=== PATIENT | male | born 1990 | race Caucasian/White ===

== ENCOUNTER 2017-07-18 20:14 | Emergency (ER) | payer BC, MEDICAID ==
--- NOTE | 2017-07-18 22:11 | EDPHY ---
H & P Time Seen by Provider: 07/18/17 22:02 HPI/ROS: CHIEF COMPLAINT: Medical Clearance. HISTORY OF PRESENT ILLNESS: The patient is a 26-year-old male here for medical clearance before he can be accepted at [facility]. The patient is currently in an outpatient rehab program for heroin and Benzos abuse. He has continued using throughout his outpatient rehab and would like to get clean. Patient is planning on going to [facility] for detox and says he has a bed there, but has to be medically cleared and seen by a psychiatrist first. Patient complains of being very cold and uncomfortable. He last used heroin at 2am. He believes he is about to go into withdrawals. REVIEW OF SYSTEMS: A comprehensive 10 point review of systems is otherwise negative aside from elements mentioned in the history of present illness. Past Medical/Surgical History: Hepatitis C. Social History: Heroin abuse. Psychiatrist: Dr. Chung. Here with outpatient rehab counselor. Smoking Status: Current every day smoker Physical Exam: General Appearance: Alert, pleasant, cooperative Eyes: Pupils equal and round, no conjunctival pallor or injection ENT, Mouth: Mucous membranes moist Neck: Normal inspection Respiratory: Lungs are clear to auscultation Cardiovascular: Regular rate and rhythm Gastrointestinal: Abdomen is soft and non-tender Neurological: A&O, nonfocal, normal gait Skin: Warm and dry, no rash. No piloerection. Extremities: Nontender, no pedal edema Psychiatric: Mood and affect normal Constitutional: Initial Vital Signs Temperature (C) 37 C 07/18/17 20:19 Heart Rate 67 07/18/17 20:19 Respiratory Rate 16 07/18/17 20:19 Blood Pressure 114/70 07/18/17 20:19 O2 Sat (%) 96 07/18/17 20:19 O2 Delivery Mode Room Air Allergies/Adverse Reactions: No Known Allergies Allergy (Verified 07/19/17 12:54) Home Medications: Medication Instructions Recorded Depakote 07/18/17 KLONOPIN 07/18/17 Unk Hep C Med 07/18/17 clonIDINE [Catapres (*)] 0.1 mg PO BID #10 tab 07/18/17 Medical Decision Making ED Course/Re-evaluation: Patient is here for medical clearance before admission to [facility] for heroin detox. Plan to check lab work. I will have our shoe parts caser speak with the patient and [facility]. This patient was seen by mental health and by the manager financial reporting. [facility] will not accept him tonight for heroin detox. He will leave the emergency department with his counselor and arrange for inpatient rehab tomorrow. - Data Points Laboratory Results: Laboratory Results 07/18/17 21:33 07/18/17 21:33 Departure - Departure Disposition: Home, Routine, Self-Care Clinical Impression: Heroin withdrawal Condition: Good Instructions: Narcotic Abuse (ED) Referrals: Jenn Gandhi DO [Doctor of Osteopathy] - As per Instructions Prescriptions: clonIDINE [Catapres (*)] 0.1 mg PO BID #10 tab Report Scribed for: Lea Jamison Report Scribed by: Valerie Mayes Date of Report: 07/18/17 Time of Report: 22:12 Physician Review and Approval Statement: 07/18/17 22:12 Portions of this note were transcribed by a medical educator. I personally performed the history, physical exam, and medical decision-making; and confirmed the accuracy of the information in the transcribed note.
[2017-07-18 22:17] LABS: % IMMATURE GRANULYOCYTES 0.3 % (0.0-1.1); ABSOLUTE IMMATURE GRANULOCYTES 0.02 10^3/uL (0.00-0.10); ADD DIFF? NO; ADD MORPH? NO; ADD SCAN? NO; ATYPICAL LYMPHOCYTE FLAG 10 (0-99); FRAGMENT RBC FLAG 0 (0-99); HEMATOCRIT 43.4 % (40.0-51.0); LEFT SHIFT FLG 0 (0-99); LIPEMIA HEMOLYSIS FLAG 90 (0-99); MEAN CELL HEMOGLOBIN 30.1 pg (27.9-34.1); MEAN CELL HEMOGLOBIN CONCENTR. 34.6 g/dL (32.4-36.7); MEAN PLATELET VOLUME 10.2 fL (8.7-11.7); PLATELET CLUMPS FLAG 10 (0-99); PLATELET COUNT 206 10^3/uL (150-400); RED BLOOD CELL COUNT 4.99 10^6/uL (4.40-6.38); RED CELL DISTRIBUTION WIDTH 12.2 % (11.5-15.2)
[2017-07-18 22:34] LABS: ANION GAP 11 mEq/L (8-16); CALCIUM 9.1 mg/dL (8.5-10.4); CARBON DIOXIDE 25 mEq/l (22-31); CHLORIDE 98 mEq/L (97-110); CREATININE 0.7 mg/dL (0.7-1.3); ETHANOL SERUM < 10 mg/dL (0-10); GLOMERULAR FILTRATION RATE > 60; GLUCOSE 115 mg/dL (70-100); POTASSIUM 4.1 mEq/L (3.5-5.2); SODIUM 134 mEq/L (134-144)
[2017-07-18 23:55] VITALS: BP 115/73; PULSE 94; RESP 18; TEMP 98.4; O2SAT 92
== END 2017-07-18 23:55 | disposition home or self-care (01) ==
DX: F11.23 Opioid dependence with withdrawal (principal); F17.200 Nicotine dependence, unspecified, uncomplicated
CPT/HCPCS: G0480

== ENCOUNTER 2017-07-19 12:46 | Emergency (ER) | payer MEDICAID ==
[2017-07-19] MEDS ORDERED: IBUPROFEN 600 MG TAB PO ONE ×2 (14:04→14:11)
[2017-07-19] MEDS ORDERED: ONDANSETRON DISINTEGRATING 4 MG TAB PO ONE (14:04)
--- NOTE | 2017-07-19 14:06 | EDPHY ---
H & P Time Seen by Provider: 07/19/17 13:54 HPI/ROS: CHIEF COMPLAINT: Medical clearance, substance abuse HISTORY OF PRESENT ILLNESS: 26-year-old male presents to the emergency department by private vehicle requesting medical clearance for substance abuse, inpatient detox center. The patient is planning on going to [facility]. He has been accepted there once he has been medically cleared. He was seen in the emergency department last evening and had blood drawn. He has a history of abusing IV heroin. Last use of heroin was last night. He has also been using Klonopin and has been trying to taper himself off of this. His last use of Klonopin was 3 or 4 days ago. He feels nauseous. No vomiting. No headache. No chest pain or difficulty breathing. Diffuse abdominal cramping. No diarrhea. REVIEW OF SYSTEMS: Constitutional: No fever, no chills. Eyes: No double or blurry vision. ENT: No sore throat. Respiratory: No cough, no shortness of breath. Cardiac: No chest pain. Gastrointestinal: No abdominal pain, vomiting or diarrhea. Genitourinary: No dysuria. Musculoskeletal: No neck or back pain. Skin: No rashes. Neurological: No headache. Past Medical/Surgical History: Substance abuse, hepatitis-C, bipolar Social History: Single Smoking Status: Current every day smoker Physical Exam: General Appearance: Alert, no distress. Vital signs are stable. Eyes: Pupils equal and round. Extraocular motions are all intact. ENT: Mouth: Mucous membranes moist. Respiratory: No wheezing, rhonchi, or rales, lungs are clear to auscultation. Cardiovascular: Regular rate and rhythm. Gastrointestinal: Abdomen is soft and nontender, no masses, no rebound or guarding, bowel sounds normal. Neurological: Alert and oriented x 3, cranial nerves II through XII grossly intact Skin: Numerous track brasher in upper extremities and lower extremities especially medial ankles. No signs of cellulitis or infection. Warm and dry, no rashes. Musculoskeletal: Nontender to palpate along the cervical, thoracic or lumbar spine. Neck is supple. Extremities: Full range of motion and no peripheral edema. Psychiatric: Patient is oriented X 3, there is no agitation. Constitutional: Initial Vital Signs Temperature (C) 36.8 C 07/19/17 12:54 Heart Rate 85 07/19/17 12:54 Respiratory Rate 18 07/19/17 12:54 Blood Pressure 114/75 07/19/17 12:54 O2 Sat (%) 94 07/19/17 12:54 O2 Delivery Mode Room Air Allergies/Adverse Reactions: No Known Allergies Allergy (Verified 07/19/17 12:54) Home Medications: Medication Instructions Recorded Depakote 07/18/17 KLONOPIN 07/18/17 Unk Hep C Med 07/18/17 clonIDINE [Catapres (*)] 0.1 mg PO BID #10 tab 07/18/17 Medical Decision Making ED Course/Re-evaluation: 26-year-old male presents to the emergency department requesting medical clearance. The patient feels that he needs inpatient detox. He has been through outpatient therapy however has been continuing to abuse drugs. He feels nauseous. Patient was given 4 mg Zofran ODT, 600 mg of ibuprofen p.o., and 1 mg of Ativan p.o.. The patient was originally accepted as an outpatient to [facility] however they did not feel that he met inpatient criteria since he has been taking Suboxone and he told the case coordinator that his last use of heroin was 2 days ago. The patient has been accepted at the addiction recovery Center. He has been discharged with a prepack of Ativan that he will take with him. Differential Diagnosis: Including but not limited to substance abuse, benzodiazepine withdrawal, electrolyte abnormality - Data Points Medications Given: Discontinued Medications Ibuprofen (Motrin) 600 mg PO EDNOW ONE Stop: 07/19/17 14:05 Last Admin: 07/19/17 14:12 Dose: 600 mg Lorazepam (Ativan) 1 mg PO EDNOW ONE Stop: 07/19/17 14:10 Last Admin: 07/19/17 14:12 Dose: 1 mg Lorazepam (Ativan 1 Mg Prepack#4) 1 btl TAKEHOME EDNOW ONE Stop: 07/19/17 17:09 Last Admin: 07/19/17 18:50 Dose: 1 btl Nicotine (Nicoderm Cq) 14 mg TD EDNOW ONE Stop: 07/19/17 19:13 Last Admin: 07/19/17 19:28 Dose: 14 mg Nicotine (Nicoderm Cq) 14 mg TD EDNOW ONE Stop: 07/19/17 19:13 Last Admin: 08/29/17 19:28 Dose: 14 mg Ondansetron HCl (Zofran Odt) 4 mg PO EDNOW ONE Stop: 07/19/17 14:05 Last Admin: 07/19/17 14:12 Dose: 4 mg Departure - Departure Disposition: Home, Routine, Self-Care Clinical Impression: Polysubstance abuse Condition: Good Instructions: Lorazepam (By mouth), Nicotine (Absorbed through the skin), Polysubstance Abuse (ED) Additional Instructions: You have been medically cleared to go directly to [facility] at [address] [place] [address]. [phone]. Referrals: [facility] Detox 24 Hours [Outside] - As per Instructions
[2017-07-19] MEDS ORDERED: LORazepam 1 MG TAB PO ONE (14:09)
--- NOTE | 2017-07-19 14:48 | ASMTCMCOM ---
CM Note CM Note Notes: Patient presents to our ED for medical detox placement and needs medical clearance for possible adm ission to [facility]. Patient states he relapsed about 6 days ago. Pt states his last use of heroin was two days ago and he normally used 0.5grams p er day by injection. Patient states his last use of speed was also two days ago and normally uses 0.2grams per day. Patient states his last use of b enzodiazepines was three days ago and normally used 1.5 mg Klonopin per day. Patients states he had been clean from heroin, speed and benzos for about two years (but was still taking Methadone and Suboxone during this period) before moving to [place] about 4 months ago. His last treatment stay was about 2 years ago in [facility]. Since 4 months ago he has relapsed about 3 times with his using periods lasting about 3-4days. Pt also has a Suboxone provide r, Dr. Marcos Mcclelland in [place] ([phone]); his last use of Suboxone (Zubsolv)was this morning, before that it had been about a week. Patient is accompanied by his flotation tank operator Pasha Latham ([phone]) through [facility] and has been with patient since last night's ED visit and is able to transport patient to the treatment faciliy. Date Signed: 07/19/2017 02:47 PM Electronically Signed By:Myra Ramírez
--- NOTE | 2017-07-19 15:36 | ASMTCMCOM ---
CM Note CM Note Notes: Patient referral faxed to [facility] (P: [phone], option 9), called to confirm receival and staff requested that the referral be traditionally faxed and not through [facility]. Staff said they are able to retrieve the referral through [facility] but that it takes a significantally longer amount of time so they prefer traditional fax. Referral printed and traditio monica faxed to [facility] (fax: [phone]). Patient updated on status of referral review. Date Signed: 07/19/2017 03:35 PM Electronically Signed By:Myra Ramírez
[2017-07-19] MEDS ORDERED: LORAZEPAM 1 MG PREPACK#4 BTL TAKEHOME ONE (17:08)
[2017-07-19 18:50] VITALS: BP 113/78; PULSE 67; RESP 16; TEMP 97.9; O2SAT 95
[2017-07-19] MEDS ORDERED: NICOTINE 14 MG/24 HR PATCH TD ONE ×2 (19:12)
== END 2017-07-19 19:29 | disposition home or self-care (01) ==
DX: F19.10 Other psychoactive substance abuse, uncomplicated (principal); F17.200 Nicotine dependence, unspecified, uncomplicated
CPT/HCPCS: 80305

== ENCOUNTER 2017-07-25 10:04 | Emergency (ER) | payer MEDICAID ==
[2017-07-25 11:04] LABS: ANION GAP 10 mEq/L (8-16); CALCIUM 9.4 mg/dL (8.5-10.4); CARBON DIOXIDE 25 mEq/l (22-31); CHLORIDE 102 mEq/L (97-110); CREATININE 0.6 mg/dL (0.7-1.3); ETHANOL SERUM < 10 mg/dL (0-10); GLOMERULAR FILTRATION RATE > 60; GLUCOSE 126 mg/dL (70-100); POTASSIUM 4.7 mEq/L (3.5-5.2); SODIUM 137 mEq/L (134-144); SPECIMEN HEMOLYSIS 125
[2017-07-25 11:25] LABS: % IMMATURE GRANULYOCYTES 0.1 % (0.0-1.1); ABSOLUTE IMMATURE GRANULOCYTES 0.01 10^3/uL (0.00-0.10); ADD DIFF? NO; ADD MORPH? NO; ADD SCAN? NO; ATYPICAL LYMPHOCYTE FLAG 30 (0-99); FRAGMENT RBC FLAG 0 (0-99); HEMATOCRIT 37.4 % (40.0-51.0); HEMOGLOBIN 12.8 g/dL (13.7-17.5); LEFT SHIFT FLG 0 (0-99); LIPEMIA HEMOLYSIS FLAG 90 (0-99); MEAN CELL HEMOGLOBIN 30.2 pg (27.9-34.1); MEAN CELL HEMOGLOBIN CONCENTR. 34.2 g/dL (32.4-36.7); MEAN CELL VOLUME 88.2 fL (81.5-99.8); PLATELET CLUMPS FLAG 10 (0-99); PLATELET COUNT 276 10^3/uL (150-400); RED BLOOD CELL COUNT 4.24 10^6/uL (4.40-6.38); RED CELL DISTRIBUTION WIDTH 12.3 % (11.5-15.2)
[2017-07-25 11:44] LABS: ALANINE AMINOTRANSFERASE 24 IU/L (21-72); ALBUMIN 3.7 g/dL (3.5-5.0); ALKALINE PHOSPHATASE 62 IU/L (38-126); ANION GAP 12 mEq/L (8-16); ASPARTATE AMINOTRANSFERASE 29 IU/L (17-59); BILIRUBIN,TOTAL 0.6 mg/dL (0.1-1.4); CALCIUM 9.2 mg/dL (8.5-10.4); CARBON DIOXIDE 25 mEq/l (22-31); CHLORIDE 102 mEq/L (97-110); CREATININE 0.6 mg/dL (0.7-1.3); ETHANOL SERUM < 10 mg/dL (0-10); GLOMERULAR FILTRATION RATE > 60; GLUCOSE 146 mg/dL (70-100); POTASSIUM 3.9 mEq/L (3.5-5.2); SODIUM 139 mEq/L (134-144); TOTAL PROTEIN 6.4 g/dL (6.3-8.2)
[2017-07-25] MEDS: IBUPROFEN 600 MG TAB PO ONE (14:33)
[2017-07-25] MEDS ORDERED: LORazepam 1 MG TAB PO ONE ×2 (14:37→23:46)
--- NOTE | 2017-07-25 16:03 | EDPHY ---
H & P Stated Complaint: DRUG WITHDRAWAL, PARANOID, SUICIDAL IDEATION - Personal History Current Tetanus Diphtheria and Acellular Pertussis (TDAP): Unsure - Medical/Surgical History Hx Asthma: No Hx Chronic Respiratory Disease: No Hx Diabetes: No Hx Cardiac Disease: No Hx Renal Disease: No Hx Cirrhosis: No Hx Alcoholism: No Hx HIV/AIDS: No Hx Splenectomy or Spleen Trauma: No Other PMH: heroin/meth amph abuse, bipolar, hep c - Social History Smoking Status: Current every day smoker Time Seen by Provider: 07/25/17 10:21 HPI/ROS: Chief complaint: Suicidal ideation History of present illness: This is a 26-year-old male who presents to the emergency department for suicidal ideation. Patient apparently brought in by his "mentors." Patient does have a history of drug abuse, specifically heroin. He has relapsed and is currently using. He has attempted to go to detox but does not feel it was a good fit for him. He would like inpatient treatment. He was seen a few days ago in this in emergency room and detox was arranged. Apparently did not feel it was a good fit. He is having thoughts of killing himself now. He has no specific plan. Denies homicidal ideation. He is concerned about a small bump on his left arm is getting infected. Denies other associated signs or symptoms. Review of systems: A 10 point review of systems was obtained and other than described above was negative. Review of systems: A 10 point review of systems was obtained and other than described above was negative (Shreyas Turcios) - Physical Exam Exam: General Appearance: Alert, nontoxic. Eyes: Pupils equal and round no pallor or injection. ENT, Mouth: Mucous membranes moist. Respiratory: There are no retractions, lungs are clear to auscultation. Cardiovascular: Regular rate and rhythm. Gastrointestinal: Abdomen is soft and non tender, no masses, bowel sounds normal. Neurological: Alert. Strength and sensation intact and symmetrical. Skin: Warm and dry, no rashes. Small area of erythema to the left proximal forearm. No induration or fluctuance. No red streaking. Musculoskeletal: Neck is supple non tender. Extremities are symmetrical, full range of motion. Psychiatric: Patient is oriented X 3, there is no agitation. (Shreyas Turcios) Constitutional: Initial Vital Signs Temperature (C) 37 C 07/25/17 10:05 Heart Rate 82 07/25/17 10:05 Respiratory Rate 16 07/25/17 10:05 Blood Pressure 147/63 H 07/25/17 10:05 O2 Sat (%) 93 07/25/17 10:05 O2 Delivery Mode Room Air Allergies/Adverse Reactions: No Known Allergies Allergy (Verified 07/25/17 10:10) Home Medications: Medication Instructions Recorded Buprenorphine HCl/Naloxone HCl 1 each SL DAILY 07/26/17 [Zubsolv 11.4-2.9 mg Tablet Sl] Divalproex [Depakote 500 MG (RX)] 500 mg PO BID 07/26/17 Escitalopram Oxalate [Lexapro] 10 mg PO DAILY 07/26/17 Gabapentin [Gralise] 1,200 mg PO TID 07/26/17 Sofosbuvir/Velpatasvir [Epclusa 1 tab PO DAILY 07/26/17 400 mg-100 mg Tablet] Medical Decision Making ED Course/Re-evaluation: Patient seen under the supervision of my secondary supervising physician Dr. Leo Vieira. Patient presents to the emergency department reporting suicidal ideation. He has concurrent polysubstance abuse problems. He is currently using heroin. On my evaluation he is nontoxic. He does appear to have a developing cellulitis to his left arm where he injected. He will be started on Bactrim. He is otherwise cleared for psychiatric evaluation. Initial evaluation the psychiatric team is concerned this is a mixed picture given his recent drug abuse and is not sure if he has a clear acute underlying psychiatric issue. They are concerned for him potentially being gravely disabled. They have placed him on a mental health hold. They would like to re- evaluate the patient this evening, 12 hours after admission to the emergency department. Care of patient will be turned over to my attending physician Dr. Mark Frias at end of shift to follow-up on the evaluation. (Shreyas Turcios) 10:40 p.m. the patient is becoming slightly agitated. I will treat him with Ativan. Mental Health will not evaluate him until 7:00 a.m. because they are concerned about his recent drug use. 4:20 p.m. July 26. The patient has been re-evaluated by mental health. He now contracts for safety. They would like to lift his hold and sent to the Addiction recovery Center by the patient agrees with this. (Mark Frias) Differential Diagnosis: Included but not limited to substance abuse, depression, bipolar, schizophrenic (Shreyas Turcios) - Data Points Laboratory Results: Laboratory Results 07/25/17 11:11 07/25/17 11:11 Medications Given: Nicotine (Nicoderm Cq) 21 mg TD DAILY PETER Stop: 01/21/18 17:44 Last Admin: 07/26/17 09:22 Dose: 21 mg Discontinued Medications Cephalexin HCl (Keflex) 500 mg PO EDNOW ONE PRN Reason: Protocol Stop: 07/26/17 09:35 Last Admin: 07/26/17 09:39 Dose: 500 mg Ibuprofen (Motrin) 600 mg PO EDNOW ONE Stop: 07/25/17 14:29 Last Admin: 07/26/17 09:40 Dose: 600 mg Ibuprofen (Motrin) 800 mg PO EDNOW ONE Stop: 07/26/17 09:35 Last Admin: 07/26/17 09:43 Dose: Not Given Ibuprofen (Motrin) 200 mg PO EDNOW ONE Stop: 07/26/17 09:45 Last Admin: 07/26/17 09:47 Dose: 200 mg Lorazepam (Ativan) 1 mg PO EDNOW ONE Stop: 07/25/17 14:38 Last Admin: 07/25/17 14:41 Dose: 1 mg Lorazepam (Ativan) 1 mg PO ONCE ONE Stop: 07/25/17 23:47 Last Admin: 07/25/17 23:53 Dose: 1 mg Lorazepam (Ativan) 1 mg PO EDNOW ONE Stop: 07/26/17 15:50 Last Admin: 07/26/17 15:57 Dose: 1 mg Olanzapine (Olanzapine) 10 mg PO EDNOW ONE Stop: 07/25/17 17:40 Last Admin: 07/25/17 17:51 Dose: 10 mg Trimethoprim/Sulfamethoxazole (Bactrim Ds) 1 ea PO EDNOW ONE PRN Reason: Protocol Stop: 07/25/17 16:07 Last Admin: 07/25/17 17:25 Dose: 1 ea Trimethoprim/Sulfamethoxazole (Bactrim Ds) 1 ea PO EDNOW ONE PRN Reason: Protocol Stop: 07/26/17 09:36 Last Admin: 07/26/17 09:40 Dose: 1 ea Departure - Departure Disposition: Home, Routine, Self-Care Clinical Impression: Suicidal ideation, Polysubstance abuse, Left arm cellulitis Condition: Fair Instructions: Suicide Prevention for Adults (ED), Polysubstance Abuse (ED) Referrals: NONE *PRIMARY CARE P,. [Primary Care Provider] - As per Instructions [facility],. [Clinic] - As per Instructions
[2017-07-25] MEDS ORDERED: SULFAMETHOX/TMP 800/160 MG 1 TAB PO ONE (16:06)
[2017-07-25] MEDS ORDERED: NICOTINE 21 MG/24 HR PATCH TD ONE (17:37)
[2017-07-25] MEDS ORDERED: OLANZapine 10 MG TAB PO ONE (17:39)
[2017-07-25] MEDS ORDERED: OLANZapine 5 MG TAB ONE (17:44)
[2017-07-25] MEDS: NICOTINE 21 MG/24 HR PATCH TD SCH (17:46)
[2017-07-25] MEDS ORDERED: LORazepam 1 MG TAB ONE (22:42)
[2017-07-26] MEDS ORDERED: SULFAMETHOX/TMP 800/160 MG 1 TAB PO SCH
[2017-07-26] MEDS: NICOTINE 21 MG/24 HR PATCH TD SCH (09:22)
[2017-07-26] MEDS ORDERED: IBUPROFEN 800 MG TAB PO ONE (09:34)
[2017-07-26] MEDS ORDERED: CEPHALEXIN 500 MG CAP PO ONE (09:34)
[2017-07-26] MEDS ORDERED: SULFAMETHOX/TMP 800/160 MG 1 TAB PO ONE (09:35)
[2017-07-26] MEDS ORDERED: IBUPROFEN 600 MG TAB PO ONE (09:37)
[2017-07-26] MEDS ORDERED: IBUPROFEN 200 MG TAB PO ONE ×2 (09:37→09:44)
[2017-07-26] MEDS: IBUPROFEN 600 MG TAB PO ONE (09:40)
[2017-07-26] MEDS ORDERED: LORazepam 1 MG TAB PO ONE (15:49)
[2017-07-26] MEDS ORDERED: ONDANSETRON DISINTEGRATING 4 MG TAB PO ONE (16:34)
[2017-07-26 17:54] VITALS: BP 137/87; PULSE 90; RESP 18; TEMP 97.9; O2SAT 97
== END 2017-07-26 17:43 | disposition home or self-care (01) ==
DX: R45.851 Suicidal ideations (principal); L03.114 Cellulitis of left upper limb; F11.10 Opioid abuse, uncomplicated; F17.200 Nicotine dependence, unspecified, uncomplicated
CPT/HCPCS: 80305; G0480

== ENCOUNTER 2018-08-31 21:23 | Emergency (ER) | payer MEDICAID, OTHER ==
--- NOTE | 2018-08-31 21:27 | EDPHY ---
H & P Source: Patient, Police, RN/MD, EMS, Old records Exam Limitations: Intoxication - Medical/Surgical History Hx Asthma: No Hx Chronic Respiratory Disease: No Hx Diabetes: No Hx Cardiac Disease: No Hx Renal Disease: No Hx Cirrhosis: No Hx Alcoholism: No Hx HIV/AIDS: No Hx Splenectomy or Spleen Trauma: No Other PMH: heroin/meth amph abuse, bipolar, hep c - Social History Smoking Status: Current every day smoker Time Seen by Provider: 08/31/18 21:26 HPI/ROS: HPI: This is a 27-year-old male who presents with Chief Complaint: Narcan wake up Location: body Quality: Heroin overdose Duration: Unknown Signs and Symptoms:+ lethargy Timing: Acute on chronic Severity: Moderate Context: Patient has a history heroin and methamphetamine abuse presents via EMS with heroin overdose. Reports intravenous heroin use this evening around approximately 830 pm and injected .25 grams heroin. Site was left forearm. Reports drug overdose in the past. Someone at patient's apartment called 911. EMS gave patient 0.4 mg of Narcan intranasally en route. Patient is very lethargic and a poor historian. Denies suicidal ideation, homicidal ideation. Modifying Factors: See above Comment: ROS: A comprehensive 10 system review of systems is otherwise negative aside from elements mentioned in the history of present illness. MEDICAL/SURGICAL/SOCIAL HISTORY: Medical history: heroin/meth amph abuse, bipolar, hep c Surgical history: Denies Social history: + smoker. Family history noncontributory. CONSTITUTIONAL: Lethargic, adult white male, awake and alert, no obvious distress HEENT: Atraumatic and normocephalic, PERRL, EOMI. Nares patent; no rhinorrhea; no nasal mucosal edema. Tympanic membranes clear. Oropharynx clear, no exudate and moist pink mucosa. Airway patent. No lymphadenopathy. No meningismus. Cardiovascular: Normal S1/S2, regular rate, regular rhythm, without murmur rub or gallop. PULMONARY/CHEST: Symmetrical and nontender. Clear to auscultation bilaterally. Good air movement. No accessory muscle usage. ABDOMEN: Soft, nondistended, nontender, no rebound, no guarding, no peritoneal signs, no masses or organomegaly. No CVAT. EXTREMITIES: 2/2 pulses, strength 5/5, no deformities, no clubbing, no cyanosis or edema. NEUROLOGICAL: no focal neuro deficits. GCS 15. SKIN: Warm and dry, no erythema. no rash. Good capillary refill. (Leilani Rader) Constitutional: Initial Vital Signs Temperature (C) 36.6 C 08/31/18 21:26 Heart Rate 94 08/31/18 21:26 Respiratory Rate 14 08/31/18 21:26 Blood Pressure 133/89 H 08/31/18 21:26 O2 Sat (%) 85 L 08/31/18 21:26 O2 Delivery Mode Room Air O2 (L/minute) 2 Allergies/Adverse Reactions: No Known Allergies Allergy (Verified 07/25/17 10:10) Home Medications: Medication Instructions Recorded Buprenorphine HCl/Naloxone HCl 1 each SL DAILY 07/26/17 [Zubsolv 11.4-2.9 mg Tablet Sl] Divalproex [Depakote 500 MG (RX)] 500 mg PO BID 07/26/17 Escitalopram Oxalate [Lexapro] 10 mg PO DAILY 07/26/17 Gabapentin [Gralise] 1,200 mg PO TID 07/26/17 Sofosbuvir/Velpatasvir [Epclusa 1 tab PO DAILY 07/26/17 400 mg-100 mg Tablet] Medical Decision Making ED Course/Re-evaluation: Vital signs reviewed and show O2 sats 85% on room air upon arrival. Placed on non-rebreather. IV access obtained and given IV 0.4 mg of Narcan. Laboratory studies, IV fluids, urine drug screen ordered 5: Reassessed patient. O2 sats now 100% on 4 L nasal cannula. Sleeping soundly but easily aroused. 0: Labs reviewed. Elevated LFTs noted with known hepatitis C. No signs of acute kidney injury, anemia, electrolyte imbalance, pancreatitis. Tylenol and salicylate levels negligible. Ethanol negative. 2305: Notified by nurse that patient is asking for water to drink. He is now 100% on room air. Tachycardia is resolved. Patient does not meet M1 hold or detainer criteria. Will offer discharge to the Addiction [facility]. 2230: Patient asking to be discharged home. Reports that he has no other drugs at his house. He refuses to go to the [facility]. 2245: Patient walking around the emergency without ataxia. He is alert and oriented x4. He will be discharged home. This patient was seen under the supervision of my secondary supervising physician. I evaluated care for this patient independently. Discussed this patient with Dr. Hammonds. (Leilani Rader) I did not see this patient while he was in the emergency department. However his care was discussed with the PA while the patient was in the department. I agree with treatment plan and management (Saad Hammonds) Differential Diagnosis: Altered mental status including but not limited to hypoglycemia, infectious process, electrolyte abnormality, head injury and intoxicants. (Leilani Rader) - Data Points Laboratory Results: Laboratory Results 08/31/18 21:40 08/31/18 21:40 Medications Given: Discontinued Medications Sodium Chloride (Ns) 1,000 mls @ 0 mls/hr IV EDNOW ONE; Wide Open PRN Reason: Protocol Stop: 08/31/18 21:31 Last Admin: 08/31/18 21:35 Dose: 1,000 mls Naloxone HCl (Narcan) 0.4 mg IVP EDNOW ONE Stop: 08/31/18 21:31 Last Admin: 08/31/18 21:31 Dose: 0.4 mg Departure - Departure Disposition: Home, Routine, Self-Care Clinical Impression: Accidental heroin overdose Qualifiers: Encounter type: initial encounter Qualified Code(s): T40.1X1A - Poisoning by heroin, accidental (unintentional), initial encounter Condition: Good Instructions: Safe Use of Opioids (ED), Opioid Overdose (ED) Additional Instructions: Please refrain from using drugs and alcohol. Follow up with [facility]. Referrals: [facility],. [Clinic] - As per Instructions [facility] Detox 24 Hours [Outside] - As per Instructions
[2018-08-31] MEDS ORDERED: NALOXONE HCL 0.4 MG/ML INJ IVP PRN (21:30)
[2018-08-31] MEDS ORDERED: NALOXONE HCL 0.4 MG/ML INJ ONE (21:30)
[2018-08-31] MEDS: NALOXONE HCL 0.4 MG/ML INJ IVP ONE (21:31)
[2018-08-31] MEDS: NS 1,000 ML IV ONE (21:35)
[2018-08-31 21:47] LABS: PLATELET COUNT 314 10^3/uL (150-400)
[2018-09-01 00:03] VITALS: BP 117/75
== END 2018-09-01 00:03 | disposition home or self-care (01) ==
LOC: EDUNIT#
DX: T40.1X1A Poisoning by heroin, accidental (unintentional), initial encounter (principal)
CPT/HCPCS: 96374; G0480; J2310

== ENCOUNTER 2018-11-02 19:54 | Emergency (ER) | payer SELFPAY ==
[2018-11-02] MEDS ORDERED: NS 1,000 ML IV ONE (19:57)
--- NOTE | 2018-11-02 20:00 | EDPHY ---
H & P Time Seen by Provider: 11/02/18 19:57 HPI/ROS: CHIEF COMPLAINT: Heroin overdose HISTORY OF PRESENT ILLNESS: The patient is a 29-year-old heroin abuser who bought some syringes at [facility] and then went into the bathroom in used heroin. He states that he used a little more than his normal amount. He had the same supply and does not think that it was cut differently. He was found about an hour later by the [facility] staff. The [facility] pharmacist gave him 2 rounds of intranasal Narcan with minimal effect. When paramedics arrived they gave him a total of 6 mg IV Narcan. He is now awake and alert. He denies , ingestants. He denies other significant medical history. He has overdosed before. Severity: Severe Modifying factors: Resolved with Narcan REVIEW OF SYSTEMS: Constitutional: denies: chills, fever, recent illness, recent injury EENTM: denies: blurred vision, double vision, nose congestion Respiratory: denies: cough, shortness of breath Cardiac: denies: chest pain, irregular heart rate, lightheadedness, palpitations Gastrointestinal/Abdominal: denies: abdominal pain, diarrhea, nausea, vomiting, blood streaked stools Genitourinary: denies: dysuria, frequency, hematuria, pain Musculoskeletal: denies: joint pain, muscle pain Skin: denies: lesions, rash, jaundice, bruising Neurological: denies: headache, numbness, paresthesia, tingling, dizziness, weakness Hematologic/Lymphatic: denies: blood clots, easy bleeding, easy bruising Immunologic/allergic: denies: HIV/AIDS, transplant 10 systems reviewed and negative except as noted EXAM: GENERAL: Well-appearing, well-nourished and in no acute distress. HEAD: Atraumatic, normocephalic. EYES: Pupils equal round and reactive to light, extraocular movements intact, sclera anicteric, conjunctiva are normal. ENT: TMs normal, nares patent, oropharynx clear without exudates. Moist mucous membranes. NECK: Normal range of motion, supple without lymphadenopathy or JVD. LUNGS: Breath sounds clear to auscultation bilaterally and equal. No wheezes rales or rhonchi. HEART: Regular rate and rhythm without murmurs, rubs or gallops. ABDOMEN: Soft, nontender, normoactive bowel sounds. No guarding, no rebound. No masses appreciated. BACK: No CVA tenderness, no spinal tenderness, step-offs or deformities EXTREMITIES: Normal range of motion, no pitting or edema. No clubbing or cyanosis. NEUROLOGICAL: Cranial nerves II through XII grossly intact. Normal speech, normal gait. 5/5 strength, normal movement in all extremities, normal sensation , normal reflexes PSYCH: Normal mood, normal affect. SKIN: Warm, dry, normal turgor, no visible rashes or lesions. Source: Patient, EMS Exam Limitations: No limitations - Medical/Surgical History Hx Asthma: No Hx Chronic Respiratory Disease: No Hx Diabetes: No Hx Cardiac Disease: No Hx Renal Disease: No Hx Cirrhosis: No Hx Alcoholism: No Hx HIV/AIDS: No - Family History Significant Family History: No pertinent family hx - Social History Smoking Status: Never smoked Alcohol Use: Occasionally Drug Use: Heroin Constitutional: Initial Vital Signs Temperature (C) 36.8 C 11/02/18 20:00 Heart Rate 116 H 11/02/18 20:00 Respiratory Rate 18 11/02/18 20:00 Blood Pressure 121/74 H 11/02/18 20:00 O2 Sat (%) 98 11/02/18 20:00 O2 Delivery Mode Room Air O2 (L/minute) 2 Allergies/Adverse Reactions: No Known Allergies Allergy (Unverified 11/02/18 19:59) Home Medications: Medication Instructions Recorded Lamictal 11/02/18 Medical Decision Making ED Course/Re-evaluation: 9:45 p.m. the patient is doing well. He is alert. No signs of significant withdrawal. He is eager to go. He has been eating. He has been ambulatory. 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 He states that he has up 3 times this month and that is unusual for him. He declines further treatment or follow-up here. Differential Diagnosis: Partial list of the Differential diagnosis considered include but were not limited to; opiate abuse, overdose and although unlikely based on the history and physical exam, I also considered head injury, infection. - Data Points Medications Given: Discontinued Medications Sodium Chloride (Ns) 1,000 mls @ 0 mls/hr IV EDNOW ONE; Wide Open PRN Reason: Protocol Stop: 11/02/18 19:58 Last Admin: 11/02/18 20:08 Dose: 1,000 mls Departure - Departure Disposition: Home, Routine, Self-Care Clinical Impression: Heroin overdose Qualifiers: Encounter type: initial encounter Injury intent: accidental or unintentional Qualified Code(s): T40.1X1A - Poisoning by heroin, accidental (unintentional), initial encounter Condition: Good Instructions: Opioid Safety (ED), Opioid Use Disorder (ED) Referrals: NONE *PRIMARY CARE P,. [Primary Care Provider] - As per Instructions Dulce Albright MD [Medical Doctor] - 2-3 days, call for appt.
[2018-11-02 22:37] VITALS: BP 118/74
== END 2018-11-02 21:55 | disposition home or self-care (01) ==
LOC: MERGE 19:54
DX: T40.1X1A Poisoning by heroin, accidental (unintentional), initial encounter (principal)